=== PATIENT | male | born 1985 | race Two or more races ===

== ENCOUNTER 2018-11-24 16:24 | Emergency (ER) | payer BC ==
[2018-11-24 16:37] VITALS: BP 118/64
[2018-11-24] MEDS ORDERED: CEPH-264 PO (17:17)
--- NOTE | 2018-11-24 17:18 | PHYS DOC ---
Past History Past Medical History: No Pertinent History Past Surgical History: No Surgical History Alcohol Use: None Drug Use: None Adult General Chief Complaint Chief Complaint: LACERATION/AVULSION [facility] Patient is a 33-year-old male who presents with injury to his right vick that he sustained while he was out doing some yard maintenance. Patient sustained a laceration to the anterior aspect of his vick. He rates pain as mild.[] Review of Systems Review of Systems Constitutional: Denies fever or chills [] Respiratory: Denies cough or shortness of breath [] Cardiovascular: No additional information not addressed in HPI [] Musculoskeletal: Positive right lower leg laceration/pain [] Physical Exam Physical Exam Constitutional: Well developed, well nourished, no acute distress, non-toxic appearance. [] Cardiovascular:Heart rate regular rhythm, no murmur [] Lungs & Thorax: Bilateral breath sounds clear to auscultation [] Skin: There is a 1.5 cm linear laceration on the anterior aspect of the mid right vick running vertically extending through subcutaneous tissue. Margins are slightly ragged. [] Current Patient Data Vital Signs Vital Signs Date Time Temp Pulse Resp B/P (MAP) Pulse Ox O2 Delivery O2 Flow Rate FiO2 11/24/18 16:37 98.1 64 14 99 Room Air EKG EKG [] Radiology/Procedures Radiology/Procedures [] Impressions: X-ray of right tib-fib demonstrates no acute bony abnormality or foreign body noted Course & Med Decision Making Course & Med Decision Making Pertinent Labs and Imaging studies reviewed. (See chart for details) [] Dragon Disclaimer Dragon Disclaimer This electronic medical record was generated, in whole or in part, using a voice recognition dictation system. Departure Departure: Impression: Primary Impression: Laceration of right lower leg Disposition: HOME, SELF-CARE Condition: STABLE Referrals: PCP,NO (PCP) Patient Instructions: Laceration Care, Adult Scripts Cephalexin (KEFLEX) 500 Mg Capsule 500 MG PO BID for PREVENT INFECTION for 10 Days, #20 TAB Prov: PAUL LEAL Jr. DO 11/24/18 Problem Qualifiers Primary Impression: Laceration of right lower leg Encounter type: initial encounter Qualified Codes: S81.811A - Laceration without foreign body, right lower leg, initial encounter PAUL LEAL Jr. DO Nov 24, 2018 17:18
--- NOTE | 2018-11-24 17:34 | RAD ---
Portable AP and lateral right tibia and fibula. HISTORY: Injury AP and lateral views were taken of the right tibia and fibula. There is no fracture or acute osseous abnormality. IMPRESSION: 1. Negative right tibia and fibula. Electronically signed by: Joe Hansen MD (11/24/2018 5:31 PM) [facility]
== END 2018-11-24 17:37 | disposition home or self-care (01) ==
LOC: ER 16:24
DX: S81.811A Laceration without foreign body, right lower leg, initial encounter (principal); X58.XXXA Exposure to other specified factors, initial encounter; Y93.89 Activity, other specified; Y92.096 Garden or yard of other non-institutional residence as the place of occurrence of the external cause; Y99.8 Other external cause status
CPT/HCPCS: 73590; 99284

== ENCOUNTER 2018-12-04 13:32 | Emergency (ER) | payer BC ==
[~2018-12-04 13:32] MED LIST: CEPH-264 PO
--- NOTE | 2018-12-04 13:56 | PHYS DOC ---
Past History Past Medical History: No Pertinent History Past Surgical History: No Surgical History Alcohol Use: None Drug Use: None Adult General Chief Complaint Chief Complaint: SUTURE/STAPLE REMOVAL HPI HPI 33-year-old male presents for suture removal. The patient had 4 stitches placed in his anterior lower leg about 2 weeks ago. He's had no complications. He denies fever or chills. Review of Systems Review of Systems Constitutional: Denies fever or chills [] Eyes: Denies change in visual acuity, redness, or eye pain [] HENT: Denies nasal congestion or sore throat [] Respiratory: Denies cough or shortness of breath [] Cardiovascular: No additional information not addressed in HPI [] GI: Denies abdominal pain, nausea, vomiting, bloody stools or diarrhea [] : Denies dysuria or hematuria [] Musculoskeletal: Denies back pain or joint pain [] Integument: Sutures lower leg[] Neurologic: Denies headache, focal weakness or sensory changes [] Endocrine: Denies polyuria or polydipsia [] All other systems were reviewed and found to be within normal limits, except as documented in this note. Physical Exam Physical Exam Constitutional: Well developed, well nourished, no acute distress, non-toxic appearance. [] HENT: Normocephalic, atraumatic, bilateral external ears normal, oropharynx moist, no oral exudates, nose normal. [] Eyes: PERRLA, EOMI, conjunctiva normal, no discharge. [] Neck: Normal range of motion, no tenderness, supple, no stridor. [] Cardiovascular:Heart rate regular rhythm, no murmur [] Lungs & Thorax: Bilateral breath sounds clear to auscultation [] Abdomen: Bowel sounds normal, soft, no tenderness, no masses, no pulsatile masses. [] Skin: 4 sutures in the left lower leg with good healing, no signs of infection.[] Back: No tenderness, no CVA tenderness. [] Extremities: No tenderness, no cyanosis, no clubbing, ROM intact, no edema. [] Neurologic: Alert and oriented X 3, normal motor function, normal sensory function, no focal deficits noted. [] Psychologic: Affect normal, judgement normal, mood normal. [] EKG EKG [] Radiology/Procedures Radiology/Procedures [] Course & Med Decision Making Course & Med Decision Making Pertinent Labs and Imaging studies reviewed. (See chart for details) [] Dragon Disclaimer Dragon Disclaimer This electronic medical record was generated, in whole or in part, using a voice recognition dictation system. Departure Departure: Impression: Primary Impression: Visit for suture removal Disposition: 01 HOME, SELF-CARE Condition: STABLE Referrals: PCP,NO (PCP) Patient Instructions: Suture Removal-Brief SEGUNDO WILSON DO Dec 04, 2018 13:56
== END 2018-12-04 14:00 | disposition home or self-care (01) ==
LOC: ER 13:32
DX: S81.812D Laceration without foreign body, left lower leg, subsequent encounter (principal); X58.XXXD Exposure to other specified factors, subsequent encounter
CPT/HCPCS: 99281

== ENCOUNTER → 2020-01-29 | Outpatient (CLI) | payer BC ==
--- NOTE | 2020-01-29 15:33 | RAD ---
LUMBAR SPINE 2-3V DATE: 01/29/2020 12:00 AM INDICATION: Reason: BACK PAIN / Spl. Instructions: / History: COMPARISON: None. FINDINGS: Five non-rib bearing lumbar-type vertebral bodies are present. Bones/Alignment: No evidence of acute compression fracture. There is no listhesis. Joints: There is no disc space loss. Miscellaneous: None. IMPRESSION: No osseous abnormalities. Electronically signed by: Jairo Lin MD (01/29/2020 3:31 PM) [id number]
== END | disposition home or self-care (01) ==
LOC: DXRAD 15:00
PROVIDERS: ATTEND Psychiatry & Neurology Neurology
DX: M54.17 Radiculopathy, lumbosacral region (principal)
CPT/HCPCS: 72100